=== PATIENT | female | born 1965 | race Caucasian/White ===

== ENCOUNTER 2016-09-22 12:45 | Day surgery (SDC) | payer MEDICARE, MEDICAID ==
[~2016-09-22] VITALS: Ht 154.9 cm; Wt 73.9 kg
[~2016-09-22 12:45] MED LIST: BUTA1CAP39 PO; FENT1PAT11 TRANSDERM; FLUO20CA25 PO; GEMF600T3 PO; LEVE500T3 PO; LEVO25TA5 PO; LORA10CA PO; OXYC1TAB24 PO; PREG150C PO; PROM25TA14 PO; RANI150C4 PO; ROB500 PO; TAMS0.4C98 PO
[2016-09-22] MEDS ORDERED: Propofol 10,000 mCg/mL 20 mL Inj ONE (12:46)
[2016-09-22] MEDS ORDERED: fentaNYL-PF 50 mCg/mL 2 mL Inj ONE (12:46)
[2016-09-22 13:10] VITALS: BP 165/101; PULSE 66; RESP 16; O2SAT 97
[2016-09-22] MEDS ORDERED: AMLO10TA3 PO (13:19)
[2016-09-22] MEDS ORDERED: HYG25 PO (13:19)
[2016-09-22] MEDS ORDERED: CARV6.252 PO (13:19)
[2016-09-22] MEDS ORDERED: BROM500T3 PO (13:19)
[2016-09-22] MEDS ORDERED: LOPE2CAP PO (13:42)
[2016-09-22] MEDS ORDERED: PHN100C PO (13:42)
[2016-09-22] MEDS ORDERED: DIME25TA2 PO (13:42)
[2016-09-22] MEDS ORDERED: PROC5TAB50 PO (13:42)
[2016-09-22] MEDS ORDERED: ALBU8.5H2 INHALATION (13:42)
[2016-09-22] MEDS ORDERED: TRAZ150T72 PO (13:42)
[2016-09-22] MEDS ORDERED: OMEP20CA11 PO (13:42)
[2016-09-22] MEDS ORDERED: PREG100C PO (13:42)
[2016-09-22] MEDS ORDERED: KRIL1CAP12 PO (13:43)
[2016-09-22] MEDS ORDERED: Lactated Ringer's 1,000 ML IV SCH (14:03)
--- NOTE | 2016-09-22 14:03 | PCM.HPANE ---
Patient Data Date of Service: Sep 22, 2016 (1642) Surgeon Admitting Provider: Attending Provider:Oseas Ruiz MD Primary Care Physician:Carol Ann Jordan PA-C Other Provider:Tameka Mauricio Anesthesia Reason for Visit Abdominal Pain Of Unknown Cause Ht/WT & BMI Height (Feet): 5 Height (Inches): 1 Weight (Kilograms): 73.94 Body Mass Index 30.00 Allergies Coded Allergies: Penicillins (Verified Allergy, Unknown, 09/20/16) bacitracin (Verified Allergy, Unknown, rash, 06/16/14) neomycin (Verified Allergy, Unknown, rash, 06/16/14) polymyxin B (Verified Allergy, Unknown, rash, 06/16/14) venom-honey bee (Verified Allergy, Unknown, 06/16/14) Uncoded Allergies: LAMOTRAGINE (Allergy, Severe, RASH, 09/22/16) Past Anesthesia History Anesthesia History: Denies:: Abnormal Airway, Anesthesia Reactions, Difficult Intubation, Fam Anesthesia Reaction, Fam Malignant Hypertherm, Malignant Hyperthermia Diabetes History Hx Diabetes?: No MRSA MRSA: Yes (CHRONIC/ LAST 2015) Medications Home Meds Incl Beta Janice: Yes Date Beta Janice Taken: Sep 22, 2016 Time Beta Janice Taken: 0930 Reported Medications Krill/[place]innell-3/Dha/Epa/Lipids (Krill Oil 300 mg Softgel)1 Each Capsule1 Each PO DAILY 09/22/16 Albuterol HFA (Proair HFA)8.5 Gm Hfa.aer.ad2 Puffs INHALATION Q4H #1 INHALER 09/22/16 Trazodone 150 Mg Ulgsnh224 Mg PO HS PRN Insomnia Ref 0 09/22/16 Omeprazole 20 Mg Capsule.dr20 Mg PO DAILY Ref 0 09/22/16 Pregabalin (Lyrica)100 Mg Zcspcbz819 Mg PO TID 30 Days Ref 0 09/22/16 Loperamide 2 Mg Capsule2 Mg PO Q4H 09/22/16 Dimenhydrinate (Dramamine)25 Mg Tab.chew50 Mg PO BID 09/22/16 Phenytoin Sodium ER (Dilantin)100 Mg Lfybdjo828 Mg PO HS 09/22/16 Prochlorperazine Maleate (Compazine)5 Mg Tablet8 Mg PO TID 09/22/16 Chlorthalidone 25 Mg Ousezv46 Mg PO DAILY #30 TABLET 09/22/16 Bromelains 500 Mg Gndzxk577 Mg PO BID 09/22/16 Carvedilol 6.25 Mg Tablet6.25 Mg PO BID Ref 0 09/22/16 Amlodipine 10 Mg Poluca32 Mg PO DAILY Ref 0 09/22/16 Ranitidine 150 Mg Jiraokd308 Mg PO BID Ref 0 09/20/16 Promethazine 25 Mg Rcwyqu66 Mg PO Q6H PRN For Nausea Ref 0 09/20/16 oxyCODONE-Acetaminophen 5-325 mg 1 Each Tablet1-2 Tab PO Q6H PRN For Pain Ref 0 09/20/16 Methocarbamol 500 Mg Esycpf826 Mg PO QID 09/20/16 Levetiracetam 500 Mg Tablet1,500 Mg PO BID 09/20/16 Gemfibrozil 600 Mg Irvpbq726 Mg PO BID #60 TABLET 09/20/16 Fluoxetine 20 Mg Forppoi30 Mg PO DAILY Ref 0 09/20/16 Butalbital/Acetamin/Caff 50-300-40 mg (Fioricet 50-300-40 mg)1 Each Capsule1 Capsule PO Q4H PRN For Pain Ref 0 09/20/16 Fentanyl 100 mcg/hr Patch 1 Each Patch.td721 Patch TRANSDERM Q3D Ref 0 09/20/16 Discontinued Reported Medications Tamsulosin (Flomax)0.4 Mg Capsule0.4 Mg PO DAILY Ref 0 09/20/16 Pregabalin (Lyrica)150 Mg Yzdgqlq301 Mg PO BID 30 Days Ref 0 09/20/16 Loratadine (Claritin)10 Mg Ojbeqdf53 Mg PO DAILY Ref 0 09/20/16 Levothyroxine 25 Mcg Csrxfk59 Mcg PO DAILY Ref 0 09/20/16 Vit #108/Iron/FA ( One Tablet)1 Each Tablet1 Each PO DAILY 06/16/14 Fluoxetine (Prozac)40 Mg Gynqpqg95 Mg PO DAILY 30 Days Ref 0 06/16/14 oxyCODONE 5 Mg Capsule5-10 Mg PO Q4-6H PRN For Pain Ref 0 06/16/14 Doxycycline Hyclate 100 Mg Pjkfrio079 Mg PO BID 10 Days 06/16/14 Cholecalciferol (Vitamin D3) (Vitamin D3)4,000 Unit Capsule8,000 Unit PO DAILY 06/16/14 Morphine Sulfate ER (MS Contin)15 Mg Tablet.er15 Mg PO BID 30 Days Ref 0 06/16/14 Ranitidine 300 Mg Apklqne533 Mg PO BID 30 Days Ref 0 06/16/14 Ondansetron ODT 8 Mg Tab.rapdis8 Mg PO TID PRN For Nausea 06/16/14 Methocarbamol 500 Mg Tablet1,000 Mg PO QID 06/16/14 Loratadine 10 Mg Tab.tialcm06 Mg PO DAILY 30 Days Ref 0 06/16/14 Levothyroxine 25 Mcg Oreiiz55 Mcg PO DAILY 30 Days Ref 0 06/16/14 Gabapentin 300 Mg Jzgbdkn893 Mg PO QID 30 Days Ref 0 06/16/14 Butalbital/Acetamin/Caff 50-300-40 mg 1 Each Capsule2 Each PO Q4 PRN For Headache Ref 0 06/16/14 Amitriptyline 25 Mg Tab25 Mg PO HS Ref 0 06/16/14 Discontinued Scripts Potassium Citrate ER 10 Meq Tablet.er10 Meq PO DAILY #30 TABLET Ref 1 TAKE WITH FOOD Prov:Favio Isabel MD 06/19/14 Ferrous Sulfate (Feosol)325 Mg Aoalzo396 Mg PO DAILYWM #100 TABLET Ref 1 Prov:Favio Isabel MD 06/19/14 Warfarin Sodium 5 Mg Uxmhlt20 Mg PO DAILY #60 TABLET Ref 0 Prov:Favio Isabel MD 06/19/14 History History of ENT Problems?: Yes HEENT History: Positive for:: Hearing Problem (L RUPTURED EAR DRUM) Sinus Problem (ALLERGIES CONGESTION) Denies:: Abnormal Airway Cataracts Difficult Intubation Dysphagia Hx of Heart Problems?: Yes Cardiovascular History: Positive for:: Hypertension Irregular Heartbeat (TACHYCARDIA) Denies:: AICD Atrial Fibrillation Cardiac Surgery Chest Pain Congestive Heart Failure Edema Heart Murmur Pacemaker Thrombophlebitis Valvular Heart Disease Other Cardiac History: HX OF BOTH TACHYACARDIA AND BRADYCARDIA Hx of Respiratory Problem?: Yes Respiratory History: Positive for:: Asthma Dyspnea Pneumonia Tuberculosis (20+ YRS AGO [place]) Denies:: COPD Chest Surgery Cough Emphysema Hemoptysis Neurological History: Positive for:: CVA (04/2015) Headaches (migraines) Denies:: Alzheimer's Disease Dementia Dizziness Parkinson's Disease Seizures Hx of GI Problems?: Yes Gastrointestinal History: Positive for:: Gall Bladder Disease (REMOVED) Gastroesphageal Reflux Heartburn Denies:: Cirrhosis Diverticulitis Gastrointestinal Bleeding Hepatitis Hiatal Hernia Liver Disease Rectal Bleeding Other GI Pertinent History: CHRONIC OSTEOMYLITIS/MRSA, LUPUS Hx of Problems?: Yes Genitourinary History: Positive for:: Kidney Stones (2013) Urinary Tract Infection Denies:: HX of Hemodialysis Female Hx: Positive for:: Endometriosis Pelvic Inflammatory Denies:: Currently Problems with Breasts? Hx Musculoskeletal Problems?: Yes Musculoskeletal History: Positive for:: Back Injury Fibromyalgia Joint Replacement (L HIP) Musculoskeletal Trauma (spine L4-S!) Hx of Psycho/Social Problems?: Yes Psycho Social History: Positive for:: Anxiety Hx Depression Denies:: Bipolar Disorder Suicide Attempt Hx Surgeries?: Yes (L HIP x6, LUMBAR X3, LAP LY, APPY, ) Hx Any Other Health Problems?: Yes Other History: Positive for:: Cancer (ovarian CA 1997 remission in ) Endocrine Disease (hypothyroid) Hospitalization ([facility]) Thyroid Disease History Blood Transfusions: Positive for:: Blood Transfusions (2013) Denies:: Blood Transfuse Reaction Hx Diabetes: No Hx Alcohol Use: NoHx Substance Use: No Smoking Status: Former Smoker Have You Smoked inLast 12 mo: No Stop/Bang Treated for Sleep Apnea?: No Do You Have a CPAP Machine?: No S-Snoring: Do You Snore Loudly: No T-Tired: feel tired, fatigued: Yes O-Obsered: Observed not breath: No P-Blood Pressure: treated: Yes B- Body Mass Index > 35 kg/m2: Yes A- Age over 50: Yes N- Neck Large Circumference: No G- Gender Male: No PRESLEY Total Score: 4 PRESLEY Risk Assessment: High Risk, =/>3 Yes Risk Assessment Category Category 1A: Patient has history of documented sleep apnea, and HAS NOT received any narcotic, sedative or anesthesia administration during this stay. Category 1B: Patient has history of documented sleep apnea, and HAS received any narcotic , sedative or anesthesia administration during this stay Category 2: Patient has SUSPECTED Obstructive Sleep Apnea, and HAS received any narcotic , sedative or anesthesia administration during this stay. Category 3: Patient has SUSPECTED Obstructive Sleep Apnea and HAS NOT received narcotic, sedative or anesthesia administration during this stay. Category 4: Outpatient in Procedural Areas with known sleep apnea or who screen positive for High Risk via the STOP/BANG questionnaire. Exam Exam Vital Signs Vital Signs Date Time Temp Pulse Resp B/P Pulse Ox O2 Delivery O2 Flow Rate FiO2 09/22/16 13:10 36.6 66 16 165/101 97 Room Air General Appearance: Alert, Oriented X3 HEENT/AIRWAY: MP 2 (MISSING, BROKEN, NONE LOOSE) Lungs: Clear to Auscultation Heart: Exam Unremarkable Plan Impression Patient chart reviewed, patient interviewed and anesthestic plan with risks, benefits, and alternatives discussed, and informed consent obtained. NPO Status: >8HRS ASA Physical Status: ASA3 Severe Disease Anesthetic Plan: GA Bene/Risks/Altern/Consents: Yes HP Complete Prior to Induction: Yes Esau Kraft MD Sep 22, 2016 14:03
[2016-09-22] MEDS ORDERED: Ondansetron 2 mg/mL 2 mL Inj IVPUSH PRN (14:05)
[2016-09-22] MEDS ORDERED: MetoCLOpramide 5 mg/mL 2 mL Inj IVPUSH PRN (14:05)
[2016-09-22] MEDS: Lactated Ringer's 1,000 ML IV ONE ×2 (14:15→14:23)
--- NOTE | 2016-09-22 14:38 | PCM.ANEP2 ---
Post Anesthesia Evaluation ASA/CMS Post Anesthesia VS in Patient's Normal Range?: Yes Resp Stable; Airway Patent?: Yes CV Function & Hydration Stable: Yes Mental Status Recovered?: Yes Pain control Satisfactory?: Yes N/V Control Satisfactory?: Yes Esau Kraft MD Sep 22, 2016 14:38
--- NOTE | 2016-09-22 14:38 | PCM.ANEP1 ---
Post Anesthesia Phase 1 PACU Phase 1 Assessment Date of Service: Sep 22, 2016 (1402) Vital Signs 119/80, 97%, 16, 80 Vital Signs Date Time Temp Pulse Resp B/P Pulse Ox O2 Delivery O2 Flow Rate FiO2 09/22/16 13:10 36.6 66 16 165/101 97 Room Air Anesthetic Administered: GA Level of Alertness: Awake, talking VIERA's with Equal Strength: Yes Pain: No Nausea or Vomiting: No Oxygen Delivery: Room Air Lungs: Clear to Auscultation Dermatome Level: Full Sensation Summary DOING WELL Esau Kraft MD Sep 22, 2016 14:38
--- NOTE | 2016-09-22 14:40 | PCM.ENDEGD ---
EGD Date of Service: Sep 22, 2016 Physician Complications There were no periprocedural complications identified. Post Procedure Plan Post Procedure Recommendations 1. Restrict activities today. 2. Resume normal activities in the morning. 3. Resume medications. 4. GERD behavioral modification: - Avoid fatty, acidic, spicy, large meals - Do not lie down after meals - Do not eat or drink anything for at least 2 1/2 hours before going to bed at night - Discontinue tobacco and alcohol - Decrease or avoid caffeine - Avoid chocolate and mints - Decrease weight - Avoid aspirin and non steroidal anti-inflammatory agents (NSAID) such as Aleve, Advil, Mobic, Naproxen, Ibuprofen, etc 5. Add proton pump inhibitor. Take 30 minutes before 1st meal of the day. 6. Patient informed of normal post procedure side effects as bloating, drowsiness, blood streaking in the stool 7. If gastric biopsy reveal H.pylori, continue with appropriate treatment 8. If small bowel biopsy reveals celiac, continue with appropriate treatment 9. Please don't hesitate to call me with any questions Oseas Ruiz MD Sep 22, 2016 14:40 access, and oxygen at 2L per nasal cannula. Complications There were no periprocedural complications identified. Post Procedure Plan Post Procedure Recommendations 1. Restrict activities today. 2. Resume normal activities in the morning. 3. Resume medications. 4. GERD behavioral modification: - Avoid fatty, acidic, spicy, large meals - Do not lie down after meals - Do not eat or drink anything for at least 2 1/2 hours before going to bed at night - Discontinue tobacco and alcohol - Decrease or avoid caffeine - Avoid chocolate and mints - Decrease weight - Avoid aspirin and non steroidal anti-inflammatory agents (NSAID) such as Aleve, Advil, Mobic, Naproxen, Ibuprofen, etc 5. Add proton pump inhibitor. Take 30 minutes before 1st meal of the day. 6. Patient informed of normal post procedure side effects as bloating, drowsiness, blood streaking in the stool 7. If gastric biopsy reveal H.pylori, continue with appropriate treatment 8. If small bowel biopsy reveals celiac, continue with appropriate treatment 9. Please don't hesitate to call me with any questions Oseas Ruiz MD Sep 22, 2016 14:40
[2016-09-22 14:41] VITALS: BP 119/80; PULSE 72; RESP 14; O2SAT 92
--- NOTE | 2016-09-22 14:42 | PCM.ENDEGD ---
EGD Date of Service: Sep 22, 2016 Physician Oseas Ruiz MD Pre Procedure Diagnosis: Abdominal pain Post Procedure Dx & Findings: Esophagitis gastritis duodenal ulcer Procedure Esophagogastroduodenoscopy PROCEDURE IN DETAIL: After proper sedation, Olympus video endoscope was inserted into patient's mouth and esophagus was successfully intubated. Scope introduced esophagus. Esophagus showed normal shiny whitish mucosa consistent with squamous cell component. Z line was irregular at 37 cm from the incisors. There was also a small whitish exudate. Biopsies were done at the exudate and the inflammation. Scope further advanced to the stomach. The entire stomach was atrophic reddish inflamed erosive. She is redundant from the prepylorus all the way to the fundus. Cardia fundus body antrum pylorus were all visualized. Retroflexion was done. Stomach was easily inflated and deflatable using air. Scope further events to the distal duodenum. Duodenum revealed normal villous structures with normal appearing folds without any mass. However in the first portion of the duodenum, there was a 6-7 mm clean base ulcer. This was biopsied. Impression Esophagitis with whitish exudate. Biopsy obtained. Erosive gastropathy status post biopsies Duodenal ulcer status post biopsies Recommendation Increase Prilosec to 20 mg twice a day. Follow-up in the GI clinic. Presedation Assessment Risks and Benefits Informed consent was obtained from the patient after all risks and benefits including but not limited to drug reaction, infection, pain, bleeding, perforation, as well as alternatives were discussed. Patient monitoring Continuous pulse oximetry, cardiac monitoring, blood pressure monitoring, IV access, and oxygen at 2L per nasal cannula. Complications There were no periprocedural complications identified. Post Procedure Plan Post Procedure Recommendations 1. Restrict activities today. 2. Resume normal activities in the morning. 3. Resume medications. 4. GERD behavioral modification: - Avoid fatty, acidic, spicy, large meals - Do not lie down after meals - Do not eat or drink anything for at least 2 1/2 hours before going to bed at night - Discontinue tobacco and alcohol - Decrease or avoid caffeine - Avoid chocolate and mints - Decrease weight - Avoid aspirin and non steroidal anti-inflammatory agents (NSAID) such as Aleve, Advil, Mobic, Naproxen, Ibuprofen, etc 5. Add proton pump inhibitor. Take 30 minutes before 1st meal of the day. 6. Patient informed of normal post procedure side effects as bloating, drowsiness, blood streaking in the stool 7. If gastric biopsy reveal H.pylori, continue with appropriate treatment 8. If small bowel biopsy reveals celiac, continue with appropriate treatment 9. Please don't hesitate to call me with any questions Oseas Ruiz MD Sep 22, 2016 14:42
[2016-09-22 14:51] VITALS: BP 128/73; PULSE 65; RESP 16; O2SAT 96
[2016-09-22 15:01] VITALS: BP 114/68; PULSE 72; RESP 16; O2SAT 98
--- NOTE | 2016-09-26 13:23 | PATH ---
SURGICAL PATHOLOGY Attending Physician:Oseas Ruiz M.D. CASE STATUS: Signed Out PATIENT NAME: FRANCI SARAH PID: [id number] : 1965 DATE COLLECTED:09/22/2016 00:00 SPECIMEN: 1: Gastric, Biopsy 2: Esophagus, Biopsy 3: Duodenum, Biopsy CLINICAL HISTORY: 1). GASTRIC BIOPSY 2). ESOPHAGUS BIOPSY 3). DUODENUM ULCER BIOPSY FINAL DIAGNOSIS: 1.GASTRIC BIOPSY: MINIMAL CHRONIC GASTRITIS INVOLVING FUNDIC MUCOSA. Negative for evidence of Helicobacter. Negative for intestinal metaplasia. Negative for dysplasia and malignancy. 2.ESOPHAGUS BIOPSY: SQUAMOUS MUCOSA AND GASTRIC CARDIA-TYPE MUCOSA, CHRONICALLY INFLAMED WITH REACTIVE EPITHELIAL CHANGES. Negative for specialized metaplasia of Rowell' s-type esophagus. Negative for dysplasia and malignancy. Eosinophils are not increased. 3.DUODENUM ULCER BIOPSY: FRAGMENTS OF APPARENT DUODENAL MUCOSA WITH CHRONIC ACTIVE DUODENITIS AND EXTENSIVE FOVEOLAR METAPLASIA WITH NO DEFINITIVE EVIDENCE OF ULCERATION WITHIN THE BIOPSY MATERIAL. ICD10 CODE K29.80 GROSS DESCRIPTION: The specimen is received in three formalin filled containers labeled with the patient's name. 1). The specimen is sublabeled "gastric" and consists of 3 portions of tissue which aggregate to 0.3 x 0.3 x 0.2 CM. The specimen is entirely submitted in cassette 1A. 2). The specimen is sublabeled "esophagus" and consists of 3 portions of tissue and or debris which aggregate to 0.3 x 0.3 x 0.2 CM. The specimen is entirely submitted in cassette 2A. 3). The specimen is sublabeled "duodenum ulcer" and consists of a 0.2 x 0.2 x 0.2 CM portion of tissue which is entirely submitted in cassette 3A. 09/23/2016 [facility] MICRO DESCRIPTION: See diagnosis. ICD-9 CODES: CPT CODES: 1: 72124 2: 70145 3: 01623 Electronically Signed Out Michael Huang MD [facility] [address], [place] [address] Technical component performed at [facility], [address], [place], [address]
== END 2016-09-22 23:59 | disposition home or self-care (01) ==
LOC: END 12:45
PROVIDERS: ATTEND Internal Medicine
DX: K29.50 Unspecified chronic gastritis without bleeding (principal); K29.81 Duodenitis with bleeding; K31.9 Disease of stomach and duodenum, unspecified; G89.4 Chronic pain syndrome; R56.9 Unspecified convulsions; M86.60 Other chronic osteomyelitis, unspecified site; Z86.14 Personal history of Methicillin resistant Staphylococcus aureus infection; Z79.891 Long term (current) use of opiate analgesic
CPT/HCPCS: 43239; J2250; J2405; J3010; J7120

== ENCOUNTER 2016-12-29 16:37 | Emergency (ER) | payer MEDICARE, MEDICAID ==
[~2016-12-29] VITALS: Ht 154.9 cm; Wt 70.5 kg
[~2016-12-29 16:37] MED LIST changes: +ALBU8.5H2 INHALATION; +AMLO10TA3 PO; +BROM500T3 PO; +CARV6.252 PO; +DIME25TA2 PO; +HYG25 PO; +KRIL1CAP12 PO; -LEVO25TA5 PO; +LOPE2CAP PO; -LORA10CA PO; +OMEP20CA11 PO; +PHN100C PO; +PREG100C PO; -PREG150C PO; +PROC5TAB50 PO; -TAMS0.4C98 PO; +TRAZ150T72 PO
[2016-12-29 16:52] VITALS: BP 125/91; PULSE 82; RESP 15; O2SAT 98
[2016-12-29 17:43] LABS: APPEARANCE,URINE CLEAR (CLEAR,HAZY); COLOR,URINE ORANGE (YELLOW); OCCULT BLOOD,URINE TRACE (NEGATIVE); PH,URINE 6.5 (5.0-8.0)
== END 2016-12-29 17:36 | disposition left against medical advice (07) ==
LOC: SED 16:37
DX: R10.9 Unspecified abdominal pain (principal); Z53.29 Procedure and treatment not carried out because of patient's decision for other reasons